=== PATIENT | female | born 1970 | race Caucasian/White ===

== ENCOUNTER 2017-05-11 11:10 | Emergency (ER) | payer MEDICAID ==
[~2017-05-11] VITALS: Ht 165.1 cm; Wt 68.0 kg
[2017-05-11 11:14] VITALS: BP 123/52
[2017-05-11] MEDS ORDERED: ACETAMINOPHEN 500MG TABLET PO ONE (14:00)
== END 2017-05-11 16:09 | disposition home or self-care (01) ==
LOC: ER 11:14
DX: R05 Cough (principal); F41.0 Panic disorder [episodic paroxysmal anxiety]; Z88.0 Allergy status to penicillin
CPT/HCPCS: 71045; 81025; 99284